=== PATIENT | female | born 1980 | race Asian ===

== ENCOUNTER 2024-07-21 11:33 | Emergency (ER) | payer OTHER, SELFPAY ==
[2024-07-21 11:33] VITALS: BP 121/73; PULSE 75; RESP 16; TEMP 36.9; O2SAT 99; BMI 25.9
--- NOTE | 2024-07-21 11:50 | EX.ED.DYSGE1 ---
HPI History of Present Illness Chief Complaint: Allergic Reaction Detail of Chief Complaint: Rash Informant: patient Narrative Narrative: Patient presents to the emergency department complaint of a rash that started 2 days ago. She states it is red and itchy and comes and goes and is noted mostly on her arms and lower abdomen as well as into her groin. She was at work today carrying some boxes and both arms were very red afterwards. Patient states that she just came back from the [facility] 2 days ago. She denies any new soaps or detergents or any other allergens. She denies recent illness. While following up with [facility] today she developed a little bit of a cough and feels like her breathing is off so they referred her to the emergency department. 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 PFSH PFSH Medical History no medical history Home Medications ?Medication ?Instructions ?Recorded ?Last Taken ?Type albuterol sulfate 90 mcg/actuation 2 puff inhalation Q4H PRN PRN 07/21/24 Unknown History aerosol inhaler shortness of breath or wheezing cetirizine 10 mg tablet 10 mg PO BID PRN PRN allergies 07/21/24 Unknown History prednisone 20 mg tablet 20 mg PO BID #10 tabs 07/21/24 Unknown Rx Allergy/AdvReac Type Severity Reaction Status Date / Time No Known Allergies Allergy Verified 07/21/24 11:38 Surgical History no surgical history Social History Smoking Status: Never smoker ROS ROS ED Review of Systems ROS Unobtainable: other Constitutional Constitutional ED: Reports lethargy; Denies chills, fever(s), sweats or weight loss Eyes Eyes: Denies blurry vision, change in vision or diplopia ENT ENT ED: Denies rhinorrhea or sore throat Cardiovascular Cardiovascular: Denies chest pain, orthopnea or racing heartbeat Respiratory/Chest Respiratory/Chest: Reports cough; Denies dyspnea, dyspnea on exertion, orthopnea or sputum Gastrointestinal Gastrointestinal: Denies abdominal pain, diarrhea, nausea or vomiting Genitourinary Genitourinary ED: Denies dysuria, hematuria or urinary frequency Musculoskeletal Musculoskeletal: Denies arthralgias, back pain, myalgias or neck pain Integumentary Denies abscess, Abrasions or rash Neurologic Neurologic: Denies headache(s) or weakness Psychiatric Psychiatric: Denies anxiety, depression or suicidal thoughts Endocrine Endocrinology: Denies polydipsia, polyphagia or polyuria Hematologic/Lymphatic Hematologic/Lymphatic: Denies easy bleeding, easy bruising or lymphadenopathy Allergic/Immunologic Allergic/Immunologic ED: Reports urticaria and other; Denies mouth swelling or tongue swelling EXAM Physical Exam Const Vital Signs: 07/21/24 11:33 07/21/24 11:51 07/21/24 12:37 Temperature 98.5 F Temperature Source Oral Pulse Rate 75 71 73 Respiratory Rate 16 16 16 Blood Pressure 121/73 H 121/82 H 127/91 H Blood Pressure Mean 89 95 103 Pulse Ox 99 98 100 Oxygen Delivery Method Room Air Room Air Room Air 07/21/24 13:00 Temperature Temperature Source Pulse Rate 71 Respiratory Rate 16 Blood Pressure 120/91 H Blood Pressure Mean 100 Pulse Ox 100 Oxygen Delivery Method Positive well nourished and well developed General Appearance ED: well developed and NAD HEENT Reports TM's clear and moist mucous membranes HEENT Narrative: Evaluation of the oropharynx reveals no evidence of angioedema. There is no erythema of the pharynx. Uvula midline. No trismus. There is no stridor. normocephalic and atraumatic; Negative for trauma or tenderness Tympanic Membrane ED: Yes TM's clear Eyes PERRL and EOMs intact bilaterally General Eye ED: Negative for pale conjunctiva or scleral icterus Neck no lymphadenopathy, supple and no JVD General: Negative for tenderness Chest Wall inspection of chest normal and palpation of chest normal Chest: Negative for tenderness Resp normal respiratory effort and clear to auscultation bilaterally Effort and Inspection: Negative for respiratory distress or pain with movement Auscultation: Negative for rhonchi, wheezes or diminished lung sounds Cardio regular rate, regular rhythm, S1 normal heart sound, S2 normal heart sound and no murmurs Peripheral Pulses: pulses 2+ throughout GI normal to inspection, nondistended, normoactive bowel sounds, soft to palpation, non-tender, non-distended and no masses Back/Spine no CVA tenderness and no thoracic nor lumbar tenderness Extremity normal to inspection General Extremety ED: Negative for edema General Extremity: Negative for edema Neuro oriented x3, CN's II-XII intact bilaterally, no sensory deficits noted and gait normal Sensorium / Orientation: awake, alert, oriented to person, oriented to place and oriented to time Motor Exam: strength 5/5 throughout and strength abnormal Psych mental status grossly normal Skin no rashes or lesions noted and no wounds Skin Narrative: Patient noted to have a rash involving the lower abdomen slightly raised erythematous typical of urticaria. Minimal erythema involving the left and right upper extremities. No erythema in the groin or the lower extremities noted at this time although she states that it had been there. There are no petechiae and no vesicles. MDM MDM MDM Narrative Medical decision making narrative: Patient presents to the emergency department with a rash that comes and goes. Today developed some scratchy throat and little bit of a cough. She denies recent illness otherwise. The rash that she had on her arms while carrying some boxes at work now seems to have resolved. Patient did show me pictures of the rash and it does appear urticarial. While in department she received prednisone p.o. as well as Benadryl and Pepcid. Rash is mostly cleared up currently. Frequent reevaluations were performed and there is no evidence of angioedema of the soft palate or oropharynx or lip or tongue. She looks well. Etiology of urticaria unclear. Will write her for prednisone and advised to use Benadryl for itching. Advised to return if lip or tongue swelling, difficulty breathing, or condition should worsen anyway. Discharge Plan Triage Chief Complaint: Allergic Reaction ED Provider: Radha Robles Dx/Rx/DC Orders Clinical Impression: Urticaria Instructions: ED Hives (Adult) Prescriptions: New prednisone 20 mg tablet 20 mg PO BID Qty: 10 0RF No Action cetirizine 10 mg tablet 10 mg PO BID PRN PRN (Reason: allergies) albuterol sulfate 90 mcg/actuation HFA aerosol inhaler 2 puff INHALATION Q4H PRN PRN (Reason: shortness of breath or wheezing) Primary Care Provider: Arsalan Gale Referrals: Arsalan Gale MD [Primary Care Provider] - 3-5 Days Print Language: Georgian Disposition Disposition: Home, Self Care
[2024-07-21 11:51] VITALS: BP 121/82; PULSE 71; RESP 16; O2SAT 98
[2024-07-21] MEDS: predniSONE 20 MG Tablet 60 MG PO (11:59)
[2024-07-21] MEDS: Famotidine 20 MG Tablet PO (11:59)
[2024-07-21] MEDS: DiphenhydrAMINE 25 MG Capsule PO (11:59)
[2024-07-21 12:37] VITALS: BP 127/91; PULSE 73; RESP 16; O2SAT 100
[2024-07-21 13:00] VITALS: BP 120/91; PULSE 71; RESP 16; O2SAT 100
[2024-07-21 13:41] VITALS: BP 120/91; PULSE 71; RESP 16; TEMP 36.9; O2SAT 100
== END 2024-07-21 13:42 | disposition home or self-care (01) ==
PROVIDERS: Emergency Provider Emergency Medicine; PCP Internal Medicine; Referring Provider Emergency Medicine; Visit Provider Emergency Medicine
DX: L50.9 Urticaria, unspecified (principal)
CPT/HCPCS: 87631; 99282; A4216